=== PATIENT | male | born 1955 | race Caucasian/White ===

== ENCOUNTER 2023-10-13 07:58 | Emergency (ER) | payer MEDICARE, OTHER ==
[~2023-10-13] VITALS: Ht 195.6 cm; Wt 137.0 kg
[2023-10-13 08:41] LABS: BASOPHILS % 0.4 % (0.0-1.0); EOSINOPHILS % 0.1 % (0.0-6.0); HEMATOCRIT 43.1 % (38.2-49.6); HEMOGLOBIN 15.5 g/dL (14.0-18.0); LYMPHOCYTES # (AUTO) 1.4 (1.0-3.2); LYMPHOCYTES % 16.7 % (18.0-39.1); MEAN CORPUSCULAR HEMOGLOBIN 29.9 pg (28-32); MEAN CORPUSCULAR VOLUME 83.2 fL (81-99); MONOCYTES # (AUTO) 0.7 (0.2-0.8); MONOCYTES % 8.6 % (4.4-11.3); NEUTROPHILS # (AUTO) 6.2 (2.1-6.9); PLATELET COUNT 226 x10e3/uL (140-360); RED BLOOD COUNT 5.18 x10e6/uL (4.3-5.7); WHITE BLOOD COUNT 8.33 x10e3/uL (4.8-10.8)
[2023-10-13 08:54] LABS: INR 1.01
[2023-10-13 09:04] LABS: ALBUMIN 3.6 g/dL (3.5-5.0); ALBUMIN/GLOBULIN RATIO 0.9 (0.8-2.0); BILIRUBIN,TOTAL 0.9 mg/dL (0.2-1.2); CALCIUM 8.4 mg/dL (8.4-10.2); CREATININE, SERUM 7.45 mg/dL (0.72-1.25); TOTAL PROTEIN 7.5 g/dL (6.5-8.1)
[2023-10-13 09:06] LABS: B-TYPE NATRIURETIC PEPTIDE2 80.6 pg/mL (0-100)
[2023-10-13 09:11] LABS: TROPONIN I 0.092 ng/mL (0-0.300)
[2023-10-13] MEDS: SODIUM CHLORIDE 0.9% 1000ML 1,000 ML IV STA ×3 (09:19→11:05)
[2023-10-13] MEDS: ONDANSETRON HCL INJ 2MG/ML 2ML 2 MG/ML VIAL IV STA (09:19)
[2023-10-13 09:28] LABS: INFLUENZAE A&B ANTIGEN (RAPID) NEGATIVE (NEGATIVE); RESPIRATORY SYNC. VIRUS NEGATIVE (NEGATIVE)
[2023-10-13] MEDS: SODIUM BICARBONATE 8.4% INJ 50 ML SYR IV STA (10:10)
[2023-10-13] MEDS: SODIUM CHLORIDE 0.9% IV SCH (10:20)
[2023-10-13] MEDS: Vancomycin IV 1 GM in SODIUM CHLORIDE 0.9% 250ML 250 ML IV ONE (11:11)
[2023-10-13] MEDS: HEPARIN SOD (PORCINE) 5,000 UNIT/ML VIAL IV ONE (11:41)
[2023-10-13] MEDS: HEPARIN 25,000 UNIT/D5W 250ML 1,000 UNIT in DEXTROSE 5% 250ML 250 ML IV SCH (11:50)
[2023-10-13 12:56] VITALS: RESP 18; O2SAT 100
[2023-10-13] MEDS ORDERED: VASOPRESSIN 60 UNIT in DEXTROSE 5% 50ML 50 ML IV SCH (13:00)
[2023-10-13 13:16] VITALS: BP 78/51; PULSE 80
[2023-10-13] MEDS: VASOPRESSIN 60 UNIT in DEXTROSE 5% 50ML 57 ML IV SCH (13:16)
== END 2023-10-13 13:50 | disposition other institution (70) ==
LOC: ER 08:21
DX: A41.9 Sepsis, unspecified organism (principal); N17.9 Acute kidney failure, unspecified; E86.0 Dehydration; R19.7 Diarrhea, unspecified; I48.91 Unspecified atrial fibrillation; I10 Essential (primary) hypertension; E11.65 Type 2 diabetes mellitus with hyperglycemia; E78.5 Hyperlipidemia, unspecified; Z11.52 Encounter for screening for COVID-19; R94.31 Abnormal electrocardiogram [ECG] [EKG]; F17.220 Nicotine dependence, chewing tobacco, uncomplicated
CPT/HCPCS: 36415; 51700; 70450; 71045; 72125; 74176; 80053; 82550; 83605; 83735; 83880; 84484; 85025; 85610; 85730; 87040; 87400; 87420; 93005; 99284; C9113; J0696; J1644; J2405; J3370; J7030; J7050; U0002